=== PATIENT | male | born 1960 | race Hispanic/Latino ===

== ENCOUNTER 2023-11-13 18:50 | Emergency (ER) | payer OTHER ==
[~2023-11-13] VITALS: Ht 180.3 cm; Wt 104.1 kg
[2023-11-13] MEDS ORDERED: AMOX TR-K CLV1 EAC2 PO (20:15)
[2023-11-13 20:50] VITALS: BP 131/72; PULSE 71; RESP 18; TEMP 98.3; O2SAT 100
== END 2023-11-13 20:40 | disposition home or self-care (01) ==
LOC: FSED 18:56
DX: K92.1 Melena (principal); K57.30 Diverticulosis of large intestine without perforation or abscess without bleeding
CPT/HCPCS: 74177; 99284